=== PATIENT | male | born 1970 | race Caucasian/White ===

== ENCOUNTER 2016-08-27 17:59 | Observation (INO) | payer MEDICARE ==
[~2016-08-27] VITALS: Ht 175.3 cm; Wt 166.0 kg
[~2016-08-27 17:59] MED LIST: ASPIRIN EC81 MG PO; CELEXA20 MG PO; COLACE100 MG PO; EXALGO8 MG PO; GLIPIZIDE10 MG PO; HUMALOG MI100 UNIT/4 SC; HYDROCODON-ACE1 EAC6 PO; IBUPROFEN800 MG PO; LEVAQUIN500 MG PO; LINZESS145 MCG PO; LIPITOR80 MG PO; LOSARTAN POTASS50 MG PO; LYRICA100 MG PO; NICODERM 21MG PA1 EA TD; NORVASC5 MG PO; PREVACID30 MG PO; QUESTRAN PACKET4 GM PO; REQUIP1 MG PO; RISPERIDONE1 MG PO; TRICOR145 MG PO; ZANAFLEX4 MG PO; ZYRTEC10 MG PO
[2016-08-27 18:54] LABS: CALCIUM 9.6 mg/dL (8.7-10.7); CREATININE 2.7 mg/dL (0.6-1.3)
[2016-08-27 18:57] LABS: POTASSIUM 5.8 mmol/L (3.5-5.1)
[2016-08-27 21:54] LABS: ARTERIAL BLD GAS O2 SATURATION 84.5 % (94-98); ARTERIAL BLOOD GAS BASE EXCESS -3.6 mmol/L (-2.0-3.0); ARTERIAL BLOOD GAS HCO3 27.3 mmol/L (22-26)
[2016-08-27 21:59] LABS: ARTERIAL BLOOD GAS pH 7.14 (7.35-7.45)
[2016-08-27 22:00] LABS: ARTERIAL BLOOD GAS PCO2 84.2 mmHg (35-48)
[2016-08-27 22:41] LABS: HEMATOCRIT 39.7 % (40-51); HEMOGLOBIN 12.9 g/dL (13.7-17.5); MEAN CORPUSCULAR HGB CONC 32.5 g/dL (32.0-36.0); MEAN CORPUSCULAR VOLUME 79.9 fL (79-92); MEAN PLATELET VOLUME 10.4 fl (7.5-11.5); RED BLOOD COUNT 4.97 x10_6/uL (4.6-6.1); RED CELL DISTRIBUTION WIDTH 17.5 % (11.6-14.4); WHITE BLOOD COUNT 13.1 x10_3/uL (4.2-9.1)
[2016-08-27 23:40] LABS: ARTERIAL BLD GAS O2 SATURATION 93.2 % (94-98); ARTERIAL BLOOD GAS BASE EXCESS -3.5 mmol/L (-2.0-3.0); ARTERIAL BLOOD GAS HCO3 27.7 mmol/L (22-26)
[2016-08-27 23:44] LABS: ARTERIAL BLOOD GAS pH 7.14 (7.35-7.45)
[2016-08-27 23:45] LABS: ARTERIAL BLOOD GAS PCO2 85.8 mmHg (35-48)
[2016-08-28 00:28] LABS: CKMB 8.1 ng/ml (0.0-5.0); TROP-I < 0.30 NG/ML (0.00-0.30)
[2016-08-28 00:52] LABS: URINE AMORPHOUS SEDIMENT 1+; URINE BACTERIA FEW (NONE SEEN); URINE BILIRUBIN NEGATIVE (NEGATIVE); URINE BLOOD TRACE (NEGATIVE); URINE GLUCOSE (UA) 1000 mg/dL (NORMAL); URINE KETONE TRACE (NEGATIVE); URINE LEUKOCYTE ESTERASE TRACE (NEGATIVE); URINE NITRATE NEGATIVE (NEGATIVE); URINE PROTEIN 2+ (NEGATIVE); URINE RBC 0-5 /[HPF] (0-2); URINE SQUAMOUS EPITHELIAL CELL 0-10 /[HPF] (NONE SEEN)
== END 2016-08-28 01:36 | disposition short-term general hospital (02) ==
LOC: ER 17:59 → MS 20:19
PROVIDERS: General Practice; ADMIT Family Medicine
DX: T40.2X1A Poisoning by other opioids, accidental (unintentional), initial encounter (principal); T42.6X1A Poisoning by other antiepileptic and sedative-hypnotic drugs, accidental (unintentional), initial encounter; E87.2 Acidosis; J96.90 Respiratory failure, unspecified, unspecified whether with hypoxia or hypercapnia; I12.9 Hypertensive chronic kidney disease with stage 1 through stage 4 chronic kidney disease, or unspecified chronic kidney disease; E11.22 Type 2 diabetes mellitus with diabetic chronic kidney disease; E11.65 Type 2 diabetes mellitus with hyperglycemia; N18.9 Chronic kidney disease, unspecified; G89.29 Other chronic pain; M54.9 Dorsalgia, unspecified; R42 Dizziness and giddiness; I25.10 Atherosclerotic heart disease of native coronary artery without angina pectoris; M62.82 Rhabdomyolysis; E86.0 Dehydration; I25.2 Old myocardial infarction; Z80.9 Family history of malignant neoplasm, unspecified; Z82.49 Family history of ischemic heart disease and other diseases of the circulatory system; Z79.891 Long term (current) use of opiate analgesic; Z79.899 Other long term (current) drug therapy; Z79.02 Long term (current) use of antithrombotics/antiplatelets; Z79.84 Long term (current) use of oral hypoglycemic drugs
CPT/HCPCS: 36415; 36600; 71010; 80048; 80307; 81001; 82550; 82553; 82803; 82962; 83605; 83880; 87086; 92950; 93005; 93041; 94002; 94660; 96361; 96365; 96374; 96376; 99070; 99284; 99285-25; G0378; G0480; J2704